=== PATIENT | female | born 1980 | race Caucasian/White ===

== ENCOUNTER 2020-01-08 13:09 | Emergency (ER) | payer MEDICARE, MEDICAID ==
[~2020-01-08] VITALS: Ht 152.4 cm; Wt 48.0 kg
[~2020-01-08 13:09] MED LIST: BACL-19 PO; CARB200C3 PO; CITA20TA6 PO; LEVO25TA2 PO; LORA0.5T PO; MAGN100T6 PO; MULT-26 PO; OMEP-110 PO; OXYB5TAB10 PO; POTA10TA11 PO; TOPI100P PO; WELLNESS FORMULA PO
--- NOTE | 2020-01-08 13:43 | NUR ---
THIS IS A 39 YEAR OLD FEMALE WHO C/O OF MULTIPLE BRUSING ON LEFT UPPER THIGH AREA AND BACK. NEW PURPLE BRUISING NOTICED. NO HX OF FALLS. 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 PLACED PATIENT ON BEDPAN.
--- NOTE | 2020-01-08 14:17 | NUR ---
PT PROVIDED PILLOW, NO COMPLAINTS AT THIS TIME. RESPIRATIONS EVEN AND UNLABORED. MOTHER REMAINS AT BEDSIDE.
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
--- NOTE | 2020-01-08 15:05 | NUR ---
XRAY DELAY FOR CT AND US
[2020-01-08 15:08] LABS: BASOPHILS # (AUTO) 0.03 x10^3/uL (0-0.1); BASOPHILS % (AUTO) 1 % (0-1); EOSINOPHILS # (AUTO) 0.06 x10^3/uL (0-0.4); EOSINOPHILS % (AUTO) 1 % (1-7); LYMPHOCYTES # (AUTO) 1.76 x10^3/uL (1-3.4); LYMPHOCYTES % (AUTO) 33 % (22-44); MD NO; MEAN CORPUSCULAR HEMOGLOBIN 33.2 pg (27.0-34.8); MEAN CORPUSCULAR HGB CONC 34.2 g/dL (32.4-35.8); MEAN CORPUSCULAR VOLUME 96.9 fL (80-100); MEAN PLATELET VOLUME 7.9 fL (7.4-10.4); MONOCYTES # (AUTO) 0.42 x10^3/uL (0.2-0.8); MONOCYTES % (AUTO) 8 % (2-9); NEUTROPHILS # (AUTO) 3.08 x10^3/uL (1.8-6.8); NEUTROPHILS % (AUTO) 58 % (42-75); PLATELET COUNT 241 x10^3/uL (130-400); RED BLOOD COUNT 4.38 x10^6/uL (3.82-5.3); RED CELL DISTRIBUTION WIDTH 11.6 % (9.6-15.2)
[2020-01-08 15:20] LABS: ALBUMIN 4.3 g/dL (3.4-5.0); ANION GAP 7 mmol/L (5-15); CALCIUM 8.7 mg/dL (8.5-10.1); CHLORIDE 109 mmol/L (98-107)
[2020-01-08 15:22] LABS: INTERNATIONAL NORMALIZED RATIO 0.96 (0.93-1.1); PROTHROMBIN TIME 10.2 Seconds (9.6-11.5)
[2020-01-08 15:29] LABS: ALANINE AMINOTRANSFERASE 38 U/L (12-78); ALKALINE PHOSPHATASE 91 U/L (45-117); BILIRUBIN,TOTAL 0.5 mg/dL (0.2-1.0); CREATININE 0.69 mg/dL (0.55-1.02); TOTAL PROTEIN 7.3 g/dL (6.4-8.2)
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
--- NOTE | 2020-01-08 16:44 | NUR ---
PT LAYING IN BED. NO SIGNS OF DISTRESS. WILL CONTINUE TO MONITOR.
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
== END 2020-01-08 17:08 | disposition home or self-care (01) ==
LOC: ED 14:51
DX: S16.1XXA Strain of muscle, fascia and tendon at neck level, initial encounter (principal); S80.02XA Contusion of left knee, initial encounter; S80.01XA Contusion of right knee, initial encounter; S70.12XA Contusion of left thigh, initial encounter; S50.02XA Contusion of left elbow, initial encounter; M79.605 Pain in left leg; R51 Headache; W19.XXXA Unspecified fall, initial encounter; Y93.89 Activity, other specified; Y92.89 Other specified places as the place of occurrence of the external cause; Y99.8 Other external cause status
CPT/HCPCS: 36415; 70450; 72125; 80053; 85025; 85610; 85730; 99285